=== PATIENT | female | born 1945 | race Caucasian/White ===

== ENCOUNTER 2021-08-06 13:25 | Emergency (ER) | payer MEDICARE, MEDICAID, SELFPAY ==
--- NOTE | 2021-08-06 13:32 | XR_ITS ---
WS: [id number] Portable AP upright chest, 08/06/2021 Clinical Data: chest pain Comparison: Portable chest, 09/25/2016. Findings: No nodules, masses or effusions are seen. The heart is large. The pulmonary vascularity is not increased. No pneumonia or pneumothorax is seen. The aortic arch and descending thoracic aorta sh ow calcification and tortuosity. XR/XR chest 1V portable [id number] Impression: Cardiomegaly and atherosclerosis.
--- NOTE | 2021-08-06 13:33 | ECG_ITS ---
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 Measurements Intervals [place] Rate: 62 P: 48 AL: 119 QRS: -41 QRSD: 82 T: 61 QT: 467 QTc: 476 Interpretive Statements SINUS RHYTHM WITH SHORT AL INTERVAL LEFT AXIS DEVIATION [QRS AXIS < -30] LOW QRS VOLTAGE IN PRECORDIAL LEADS [QRS DEFLECTION < 1.0 mV IN CHEST LEADS] POSSIBLE RIGHT VENTRICULAR CONDUCTION DELAY [RSR (QR) IN V1/V2] MINIMAL VOLTAGE CRITERIA FOR LVH, CONSIDER NORMAL VARIANT SEPTAL MYOCARDIAL INFARCTION , PROBABLY OLD [40+ ms Q WAVE IN V1/V2] Compared to ECG 09/25/2016 13:16:10 Short AL interval now present Myocardial infarct finding now present Junctional rhythm no longer present Electronically Signed On 08-06-2021 22:15:43 CDT by Wendy Barahona M.D. [id number]
[2021-08-06 13:37] VITALS: BP 228/90; PULSE 62; RESP 18; TEMP 36.6; O2SAT 97
[2021-08-06 13:58] LABS: Basophils % 0.3 %; Eosinophils # 0.2 10^3/uL (0.0-0.8); Eosinophils % 3.1 %; Hematocrit 43.5 % (37.0-47.0); Lymphocytes # 1.7 10^3/uL (0.8-4.8); Lymphocytes % 23.8 %; Mean Corpuscular HGB Conc 32.2 g/dL (30.0-36.0); Mean Corpuscular Hemoglobin 29.9 pg (28.0-34.0); Mean Corpuscular Volume 92.8 fl (81-99); Mean Platelet Volume 11.5 fL (7.4-10.4); Monocytes # 0.8 10^3/uL (0.2-0.9); Monocytes % 10.8 %; Neutrophils # 4.33 10^3/uL (1.8-7.7); Neutrophils % 61.6 %; Nucleated Red Blood Cells % 0 %; Platelet Count 220 10^3/cmm (130-400); Red Blood Count 4.69 10^6/uL (4.1-5.3); Red Cell Distribution Width 13.7 % (12.1-15.1)
[2021-08-06 14:02] VITALS: BP 212/87; PULSE 62; RESP 18; O2SAT 97
--- NOTE | 2021-08-06 14:04 | W.ED.CHESTPA ---
HPI - Chest Pain General: Chief Complaint: Chest Pain Stated Complaint: CHEST PAIN Time Seen by Provider: 08/06/21 13:31 Source: patient Mode of arrival: ambulatory Limitations: no limitations History of Present Illness: 75-year-old female presents emergency room from assisted living. First report I had with with that she had chest pain. She is not really able to provide much history she had some difficulty with word finding and some very mild dysarthria. I was able to get from that she previously had a stroke which she could not identify much of her history of present illness for me. When family arrived to coming to bedside that report from the detention was that the staff is concerned she was having another stroke. Reassessed patient and her nurse score was unremarkable except for the dysarthria which in discussing with the family they state they feel she is pretty much at her baseline the deficits that they witnessed here in the exam room are similar to what she has had since she had a previous stroke. Her blood pressure is markedly elevated. Patient denies any chest or abdominal pain. MD complaint: chest pain Pertinent past history: coronary artery disease Onset (ago): unknown Relieving factors: nothing Exacerbating factors: nothing Associated symptoms: Deny abdominal pain, diaphoresis, dyspnea, fever(s), leg edema, palpitations, sense of impending doom, syncope or vomiting Treatment prior to arrival: none Review of Systems Const: Denies: fever(s) or diaphoresis Eyes: Denies: change in vision or blurry vision ENMT: Denies: throat pain, oral sores, dental pain, nasal discharge or nasal congestion Card: Denies: palpitations or syncope Resp: Denies: dyspnea GI: Denies: abdominal pain or vomiting : Denies: flank pain, dysuria, urinary frequency, urinary urgency, urinary incontinence or hematuria Musc: Denies: neck pain, back pain, extremity pain, extremity swelling, joint pain or joint swelling Skin/Breast: Denies: rash, pruritus or erythema Neuro: Denies: headache(s), numbness in extremities, weakness in extremities, sensory changes, lack of coordination, difficulty walking, frequent falls, dizziness, vertigo or confusion Psych: Denies: anxiety, depression, loss of interest, visual hallucinations, auditory hallucinations, suicidal ideation or homicidal ideation Endo: Denies: polyuria, polydipsia, tired all the time or cold intolerance Moses/Lymph: Denies: easy bruising, easy bleeding, petechiae, enlarged lymph nodes or tender lymph nodes Course Vital Signs: Vital signs: Vital Signs Temperature 97.8 F 08/06/21 16:44 Pulse Rate 73 08/06/21 16:44 Respiratory Rate 18 08/06/21 16:44 Blood Pressure 184/84 08/06/21 16:44 Pulse Oximetry 96 08/06/21 16:03 MDM - Chest Pain Medical Decision Making Cardiac enzymes negative EKG unremarkable. Blood pressure is elevated but has responded to treatment. Discussed with the family they feel she is pretty much at her baseline we will go ahead and discharge her back to the detention I did add lisinopril and amlodipine for blood pressure since her pressure is so high. Family related that recently that she had been taking off her blood pressure medications because her blood pressure had been low. We went with 2 agents because of the degree of hypertension when she first arrived they can follow-up with this with her primary care doctor through the detention. Medical Records I reviewed the patient's medical records. Lab Data I reviewed the patient's lab results. : 08/06/21 12:40 08/06/21 14:50 Radiology Impressions Chest X-Ray 08/06/21 13:32 Impression: Cardiomegaly and atherosclerosis. Head CT 08/06/21 14:15 IMPRESSION: 1. No acute intracranial hemorrhage or edema. 2. 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 Laboratory Results WBC 7.0 10^3/uL (4.0-10.0) 08/06/21 12:40 RBC 4.69 10^6/uL (4.1-5.3) 08/06/21 12:40 Hgb 14.0 g/dL (11.5-15.3) 08/06/21 12:40 Hct 43.5 % (37.0-47.0) 08/06/21 12:40 MCV 92.8 fl (81-99) 08/06/21 12:40 MCH 29.9 pg (28.0-34.0) 08/06/21 12:40 MCHC 32.2 g/dL (30.0-36.0) 08/06/21 12:40 RDW 13.7 % (12.1-15.1) 08/06/21 12:40 Plt Count 220 10^3/cmm (130-400) 08/06/21 12:40 MPV 11.5 fL (7.4-10.4) H 08/06/21 12:40 Neut % (Auto) 61.6 % 08/06/21 12:40 Lymph % (Auto) 23.8 % 08/06/21 12:40 Cobb % (Auto) 10.8 % 08/06/21 12:40 Eos % (Auto) 3.1 % 08/06/21 12:40 Baso % (Auto) 0.3 % 08/06/21 12:40 Neut # (Auto) 4.33 10^3/uL (1.8-7.7) 08/06/21 12:40 Lymph # (Auto) 1.7 10^3/uL (0.8-4.8) 08/06/21 12:40 Cobb # (Auto) 0.8 10^3/uL (0.2-0.9) 08/06/21 12:40 Eos # (Auto) 0.2 10^3/uL (0.0-0.8) 08/06/21 12:40 Baso # (Auto) 0.0 10^3/uL (0.0-0.1) 08/06/21 12:40 Nucleated RBC % (auto) 0 % 08/06/21 12:40 Nucleated RBCs # 0.0 /100WBC 08/06/21 12:40 Sodium 137 mmol/L (136-145) 08/06/21 14:50 Potassium 4.1 mmol/L (3.5-5.1) 08/06/21 14:50 Chloride 100 mmol/L (98-107) 08/06/21 14:50 Carbon Dioxide 24 mmol/L (22-29) 08/06/21 14:50 Anion Gap 17.1 (5-19) 08/06/21 14:50 BUN 19 mg/dL (8-23) 08/06/21 14:50 Creatinine 1.1 mg/dL (0.5-0.9) H 08/06/21 14:50 GFR Calculation Not Reportable 08/06/21 14:50 Glucose 147 mg/dL (65-115) H 08/06/21 14:50 Calculated Osmolality 289 mOsm/kg (285-295) 08/06/21 14:50 Calcium 9.0 mg/dL (8.5-10.5) 08/06/21 14:50 Total Bilirubin 0.2 mg/dL (0.15-1.2) 08/06/21 14:50 AST 9 U/L (0-32) 08/06/21 14:50 ALT 9 U/L (0-33) 08/06/21 14:50 Alkaline Phosphatase 91 IU/L (35-105) 08/06/21 14:50 Troponin T Baseline 9 ng/L (0-10) 08/06/21 12:40 Troponin T 120 Minute 11.34 ng/L (0-10) H 08/06/21 14:50 Delta Troponin T 2.34 ABS# (0-10) 08/06/21 14:50 Total Protein 7.7 g/dL (6.6-8.7) 08/06/21 14:50 Albumin 4.0 g/dL (3.5-5.2) 08/06/21 14:50 Globulin 3.7 g/dL (1.3-4.6) 08/06/21 14:50 Discharge Plan Discharge Patient Disposition: Home Clinical Impression: Atypical chest pain Condition: Stable Prescriptions: New amlodipine 5 mg tablet 5 mg PO DAILY Qty: 30 0RF lisinopril 10 mg tablet 10 mg PO DAILY Qty: 30 0RF No Action Senna-S 8.6-50 mg Tablet 1 tab-cap PO Q12H PRN (Reason: Constipation) 0RF simvastatin 10 mg Tablet 10 mg PO DAILY 0RF clopidogrel 75 mg Tablet 75 mg PO DAILY 0RF acetaminophen 500 mg Tablet 500 mg PO Q4H PRN (Reason: Pain) 0RF levothyroxine 25 mcg Tablet 25 mcg PO DAILY 0RF citalopram 20 mg Tablet 20 mg PO DAILY 0RF gabapentin 100 mg Capsule 200 mg PO BID 0RF mirtazapine 7.5 mg Tablet 7.5 mg PO DAILY 0RF Discharge Orders: Discharge ED (Routine); Ordered 08/06/21 Ordered By: Will Frank Referrals: Jim Atkinson, HOME IMPROVEMENT INSTALLER [Primary Care Provider] - Discharge Diet: Usual diet Discharge Activity: Limit activity as instructed Patient Instructions: Opioid Safety Activity Restrictions/Additional Instructions: Accelerated hypertension follow-up with blood pressure at the detention start the new medications prescribed as above. Coding Level of Care Code ED International Rec[employer] for Abilio Corbett
--- NOTE | 2021-08-06 14:15 | CT_ITS ---
WS: [id number] CT HEAD NONCONTRAST HISTORY: HX cva, difficulty w speech TECHNIQUE: Contiguous axial imaging performed through the brain in 2.5 mm imaging. Bone and soft tiss ue windows. Sagittal and coronal reformats reviewed. All CT scans at [facility] use at least one of these dose optimization techniques: automated exposure control; mA and/or kV adjustment per pa tient size (includes targeted exams where dose is matched to clinical indication); or iterative recon struction. DLP: 859.45 mGy.cm COMPARISON: 08/14/2014 No acute intracranial hemorrhage, midline shift or mass effect. Moderate atrophy. Large area of encephalomalacia involving the LEFT MCA territory from a prior infarc t. Ex vacuole dilatation of the LEFT lateral ventricle. Ventricles: No midline shift. Mildly prominent ventricles with ex vacuole dilatation of the LEFT lat eral ventricle. No inferior displacement of cerebellar tonsils. Paranasal sinuses: Mucous retention cyst or polyp in the RIGHT maxillary sinus. Mastoid air cells: Well pneumatized. Calvarium and scalp: Skull is intact with no soft tissue edema or swelling. CT/CT head wo con* [id number] IMPRESSION: 1. No acute intracranial hemorrhage or edema. 2. Large LEFT MCA territory infarct with encephalomalacia and ex vacuole dilat ation of the LEFT lateral ventricle.
[2021-08-06] MEDS: amlodipine 10 mg Tablet PO (14:37)
[2021-08-06] MEDS: hyDRALAzine 20 mg/mL INJ 1 mL IVP (14:37)
[2021-08-06 14:40] LABS: Troponin(5th) Baseline 9 ng/L (0-10)
[2021-08-06 15:24] VITALS: BP 212/87; PULSE 75; RESP 18; O2SAT 97
[2021-08-06 15:28] LABS: Alanine Aminotransferase 9 U/L (0-33); Alkaline Phosphatase 91 IU/L (35-105); Anion Gap 17.1 (5-19); Aspartate Amino Transferase 9 U/L (0-32); Blood Urea Nitrogen 19 mg/dL (8-23); Carbon Dioxide 24 mmol/L (22-29); Chloride 100 mmol/L (98-107); Globulin 3.7 g/dL (1.3-4.6); Glucose 147 mg/dL (65-115); Osmolality Calculated 289 mOsm/kg (285-295); Potassium 4.1 mmol/L (3.5-5.1); Sodium 137 mmol/L (136-145); Total Bilirubin 0.2 mg/dL (0.15-1.2); Total Protein 7.7 g/dL (6.6-8.7)
[2021-08-06 15:29] LABS: Troponin 5 2HR 11.34 ng/L (0-10)
--- NOTE | 2021-08-06 15:33 | ECG_ITS ---
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 Measurements Intervals [place] Rate: 59 P: 45 WV: 125 QRS: -43 QRSD: 79 T: 36 QT: 481 QTc: 478 Interpretive Statements SINUS BRADYCARDIA LEFT AXIS DEVIATION [QRS AXIS < -30] LOW QRS VOLTAGE IN PRECORDIAL LEADS [QRS DEFLECTION < 1.0 mV IN CHEST LEADS] PATTERN CONSISTENT WITH PULMONARY DISEASE MODERATE VOLTAGE CRITERIA FOR LVH, CONSIDER NORMAL VARIANT [MEETS CRITERIA IN ONE OF: R(aVL), S(V1), R(V5), R(V5/V6)+S(V1)] PROLONGED QT INTERVAL Compared to ECG 08/06/2021 12:30:32 Prolonged QT interval now present Sinus rhythm no longer present Short [place] interval no longer present Myocardial infarct finding no longer present Electronically Signed On 08-06-2021 22:23:31 CDT by Wendy Barahona M.D. [id number]
[2021-08-06 15:36] LABS: Troponin 5 2HR Delta 2.34 ABS# (0-10)
[2021-08-06 16:03] VITALS: BP 196/92; PULSE 68; RESP 18; O2SAT 96
[2021-08-06] MEDS: hyDRALAzine 20 mg/mL INJ 1 mL 10 MG IVP (16:23)
[2021-08-06 16:44] VITALS: BP 184/84; PULSE 73; RESP 18; TEMP 36.6
--- NOTE | 2021-08-06 16:51 | PC.NURSE ---
Report called to [facility] Tabitha mcgovern. Discussed new meds & Rx x2 sent w pt.
== END 2021-08-06 16:46 | disposition home or self-care (01) ==
PROVIDERS: Emergency Provider Family Medicine
DX: R07.89 Other chest pain (principal); I10 Essential (primary) hypertension; I69.30 Unspecified sequelae of cerebral infarction; R47.1 Dysarthria and anarthria; I25.10 Atherosclerotic heart disease of native coronary artery without angina pectoris; Z79.02 Long term (current) use of antithrombotics/antiplatelets
CPT/HCPCS: 70450; 71045; 80053; 84484; 85025; 93005; 96374; 96375; 99285; J0360

== ENCOUNTER → 2024-07-05 14:42 | Outpatient (BNVA) | payer MEDICARE, MEDICAID, SELFPAY | PROVIDERS: Referring Provider Family Medicine; Visit Provider Nurse Practitioner Family | DX: D23.39 Other benign neoplasm of skin of other parts of face (principal); D69.2 Other nonthrombocytopenic purpura; R22.1 Localized swelling, mass and lump, neck; L57.8 Other skin changes due to chronic exposure to nonionizing radiation; L81.4 Other melanin hyperpigmentation; X32.XXXA Exposure to sunlight, initial encounter; L57.0 Actinic keratosis; D48.5 Neoplasm of uncertain behavior of skin | CPT/HCPCS: 11102; 17000; 99203 ==

== ENCOUNTER → 2024-09-13 11:34 | Outpatient (BNVA) | payer MEDICARE, MEDICAID, SELFPAY | PROVIDERS: Visit Provider Dermatology | DX: D04.72 Carcinoma in situ of skin of left lower limb, including hip (principal); D48.5 Neoplasm of uncertain behavior of skin | CPT/HCPCS: 11643; 12052; 14041; 99214 ==